=== PATIENT | female | born 1995 | race Caucasian/White ===

== ENCOUNTER 2024-12-02 | Inpatient (IN) | payer BC ==
[2024-12-02] MEDS ORDERED: Misoprostol 25 MCG (1/4 of 100 MCG) Tab VAG PRN (00:49)
[2024-12-02] MEDS ORDERED: Methylergonovine 0.2 MG/1 ML Amp IM PRN ×2 (00:49→21:27)
[2024-12-02] MEDS ORDERED: Lidocaine 1% 50 ML MDV INJECT PRN (00:49)
[2024-12-02] MEDS ORDERED: Water For Irrigation,Sterile 1,000 ML Container IRR PRN (00:49)
[2024-12-02] MEDS ORDERED: Sodium Chloride 0.9% 2.5 ML Syringe FLUSH PRN ×2 (00:49→21:27)
[2024-12-02] MEDS ORDERED: Terbutaline 1 MG/ML SDV SUBCUT PRN (00:49)
[2024-12-02] MEDS ORDERED: Butorphanol 2 MG/ML SDV IVPUSH PRN (00:49)
[2024-12-02] MEDS ORDERED: Misoprostol 200 MCG Tab PO PRN (00:49)
[2024-12-02] MEDS ORDERED: Sodium Chloride 0.9% 10 ML Syringe FLUSH PRN ×2 (00:49→21:27)
[2024-12-02] MEDS ORDERED: Carboprost Tromethamine 250 MCG/1 mL Vial IM PRN (00:49)
[2024-12-02] MEDS ORDERED: Ondansetron 4 MG/2 ML SDV IVPUSH PRN ×4 (00:49→22:53)
[2024-12-02] MEDS ORDERED: Sodium Chloride 0.9% 20 ML SDV IV PRN ×2 (00:49→21:27)
[2024-12-02] MEDS ORDERED: Tranexamic Acid in NACL,ISO-OS 1,000 MG in Premix Bag 1 BAG IV PRN (00:49)
[2024-12-02] MEDS ORDERED: Misoprostol 200 MCG Tab RECTAL PRN ×2 (00:49→21:27)
[2024-12-02] MEDS ORDERED: Oxytocin/0.9 % Sodium Chloride 30 UNIT/500 ML BAG IV SCH ×3 (01:00→21:30)
[2024-12-02 01:02] LABS: HEMATOCRIT 31.8 % (37.0-47.0); HEMOGLOBIN 10.9 g/dL (12.0-16.0); MEAN CORPUSCULAR HEMOGLOBIN 29.2 pg (28.0-32.0); MEAN CORPUSCULAR HGB CONC 34.3 g/dL (32.0-36.0); MEAN CORPUSCULAR VOLUME 85.3 fL (83.0-99.0); MEAN PLATELET VOLUME 11.8 fL (9.4-12.3); PLATELET COUNT,PLT 238 K/uL (150-400); RED BLOOD CELL COUNT 3.73 M/uL (4.10-5.30); WHITE BLOOD CELL COUNT,WBC 9.76 K/uL (3.9-11.3)
[2024-12-02] MEDS: Misoprostol 50 MCG (1/2 of 100 MCG) Tab PO ONE (01:21)
[2024-12-02] MEDS: Misoprostol 25 MCG (1/4 of 100 MCG) Tab VAG PRN (01:21)
[2024-12-02] MEDS: Lactated Ringers 1,000 ML IV SCH (08:32)
[2024-12-02] MEDS: Oxytocin/0.9 % Sodium Chloride 30 UNIT/500 ML BAG IV SCH (08:41)
[2024-12-02] MEDS ORDERED: ePHEDrine 50 MG/ML SDV IVPUSH PRN (09:21)
[2024-12-02] MEDS ORDERED: dexmedeTOMIDine HCl 200 MCG/2 ML SDV EPIDUR SCH (09:30)
[2024-12-02] MEDS: Ropivacaine HCl/PF 400 MG in Premix Bag 1 BAG EPIDUR SCH (13:34)
[2024-12-02] MEDS ORDERED: Bupivacaine 0.5% 30 ML SDV ONE (21:16)
[2024-12-02] MEDS ORDERED: fentaNYL 100 MCG/2 ML SDV ONE (21:16)
[2024-12-02] MEDS ORDERED: Ropivacaine 0.5% 5 MG/ML 30 ML SDV ONE (21:22)
[2024-12-02] MEDS ORDERED: Oxytocin 10 Units/1 ML SDV ONE ×2 (21:22→21:54)
[2024-12-02] MEDS ORDERED: ceFAZolin 2 GM Vial ONE (21:22)
[2024-12-02] MEDS ORDERED: Dexamethasone 4 MG/ML 5 ML MDV ONE (21:22)
[2024-12-02] MEDS ORDERED: Sodium Chloride 0.9% 20 ML ONE (21:23)
[2024-12-02] MEDS ORDERED: Naloxone 0.4 MG/ML SDV IVPUSH PRN ×2 (21:27→22:53)
[2024-12-02] MEDS ORDERED: Lanolin 100% Cream 7 GM Tube TOP PRN (21:27)
[2024-12-02] MEDS ORDERED: Bisacodyl 10 MG Supp RECTAL PRN (21:27)
[2024-12-02] MEDS ORDERED: Acetaminophen/oxyCODONE 325-5 MG Tab PO PRN ×3 (21:27→22:53)
[2024-12-02] MEDS ORDERED: diphenhydrAMINE 50 MG/ML SDV IVPUSH PRN ×2 (21:27→22:53)
[2024-12-02] MEDS ORDERED: ceFAZolin 2 GM in Sodium Chloride 0.9% 50 ML IV ONE (21:27)
[2024-12-02] MEDS ORDERED: Oxytocin 10 Units/1 ML SDV IM PRN (21:27)
[2024-12-02] MEDS ORDERED: Ketorolac 30 MG/ML SDV IVPUSH SCH (21:30)
[2024-12-02] MEDS ORDERED: Lactated Ringers 1,000 ML IV SCH ×2 (21:30)
[2024-12-02] MEDS ORDERED: Phenylephrine HCl In 0.9% NaCl 1 MG/10 ML Syringe ONE ×2 (21:44→22:01)
[2024-12-02] MEDS ORDERED: Glycopyrrolate 0.2 MG/ML SDV ONE (21:46)
[2024-12-02] MEDS ORDERED: Morphine PF 10 MG/10 ML SDV ONE (21:51)
[2024-12-02] MEDS ORDERED: Tranexamic Acid 1,000 MG/10 ML Vial ONE (21:56)
[2024-12-02] MEDS ORDERED: Phenylephrine 1% 10 MG/ML SDV ONE (22:09)
[2024-12-02] MEDS ORDERED: Morphine 2 MG/ML SYRINGE IVPUSH PRN (22:53)
[2024-12-02] MEDS ORDERED: fentaNYL 100 MCG/2 ML SDV IVPUSH PRN (22:53)
[2024-12-02] MEDS ORDERED: Albuterol 0.083% 2.5 MG/3 ML Neb Soln NEB PRN (22:53)
[2024-12-02] MEDS ORDERED: Metoclopramide 10 MG/2 ML SDV IVPUSH PRN (22:53)
[2024-12-02] MEDS ORDERED: Phenylephrine HCl In 0.9% NaCl 1 MG/10 ML Syringe IVPUSH PRN (22:53)
[2024-12-02] MEDS ORDERED: HYDROmorphone 1 MG/ML Syringe IVPUSH PRN (22:53)
[2024-12-02] MEDS ORDERED: fentaNYL 50 MCG/ML SDV IVPUSH PRN (22:53)
[2024-12-02] MEDS ORDERED: Nalbuphine 10 MG/1 ML Vial IVPUSH PRN (22:53)
[2024-12-02] MEDS: Phenylephrine HCl In 0.9% NaCl 1 MG/10 ML Syringe IVPUSH PRN (23:18)
[2024-12-02 23:36] LABS: PH,UMBILICAL VENOUS 7.17 (7.25-7.45)
[2024-12-03] MEDS: Acetaminophen 1,000 MG in Premix Bag 1 BAG IV SCH (01:04)
[2024-12-03] MEDS: Citric Acid/Sodium Citrate Solution 30 ML Cup PO ONE (01:18)
[2024-12-03] MEDS: Ketorolac 30 MG/ML SDV IVPUSH SCH (01:54)
[2024-12-03 06:22] LABS: HEMOGLOBIN 7.8 g/dL (12.0-16.0)
[2024-12-03] MEDS: Docusate Sodium 100 MG Cap PO SCH (09:02)
[2024-12-03] MEDS: Ferrous Sulfate 325 MG Tab PO SCH (13:07)
[2024-12-04 05:51] LABS: HEMATOCRIT 18.8 % (37.0-47.0); HEMOGLOBIN 6.4 g/dL (12.0-16.0); MEAN CORPUSCULAR HEMOGLOBIN 29.2 pg (28.0-32.0); MEAN CORPUSCULAR VOLUME 85.8 fL (83.0-99.0); PLATELET COUNT,PLT 256 K/uL (150-400); RED BLOOD CELL COUNT 2.19 M/uL (4.10-5.30); WHITE BLOOD CELL COUNT,WBC 13.73 K/uL (3.9-11.3)
[2024-12-04] MEDS: diphenhydrAMINE 25 MG Cap PO ONE (08:11)
[2024-12-04] MEDS: Acetaminophen 325 MG Tab PO ONE (08:11)
[2024-12-04] MEDS: Simethicone 80 MG Tab.Chew PO SCH (08:12)
[2024-12-04] MEDS: Sodium Chloride 0.9% 1,000 ML IV SCH (08:23)
[2024-12-04] MEDS: Ibuprofen 800 MG Tab PO PRN (12:21)
[2024-12-04] MEDS: Furosemide 20 MG/2 ML VIAL IVPUSH ONE ×2 (14:55→15:39)
[2024-12-04] MEDS: Furosemide 20 MG/2 ML VIAL ONE (15:39)
[2024-12-04 23:14] LABS: HEMATOCRIT 32.4 % (37.0-47.0); HEMOGLOBIN 10.9 g/dL (12.0-16.0)
[2024-12-05 06:04] LABS: HEMATOCRIT 29.2 % (37.0-47.0); HEMOGLOBIN 10.2 g/dL (12.0-16.0); MEAN CORPUSCULAR HEMOGLOBIN 30.2 pg (28.0-32.0); MEAN CORPUSCULAR HGB CONC 34.9 g/dL (32.0-36.0); MEAN CORPUSCULAR VOLUME 86.4 fL (83.0-99.0); MEAN PLATELET VOLUME 9.6 fL (9.4-12.3); PLATELET COUNT,PLT 251 K/uL (150-400); RED BLOOD CELL COUNT 3.38 M/uL (4.10-5.30); WHITE BLOOD CELL COUNT,WBC 11.63 K/uL (3.9-11.3)
== END 2024-12-05 12:15 | disposition home or self-care (01) | DRG 540 ==
LOC: MW.OB → OBSVTOIN 21:52 → MERGE 21:52 → MW.OB 21:52
PROVIDERS: ADMIT Obstetrics & Gynecology; ATTEND Obstetrics & Gynecology
PROC: 10907ZC Drainage of Amniotic Fluid, Therapeutic from Products of Conception, Via Natural or Artificial Opening (ICD-10-PCS; 2024-12-02)
PROC: 3E0R3BZ Introduction of Anesthetic Agent into Spinal Canal, Percutaneous Approach (ICD-10-PCS; 2024-12-02)
PROC: 10D00Z1 Extraction of Products of Conception, Low, Open Approach (ICD-10-PCS; 2024-12-02)
PROC: 30233N1 Transfusion of Nonautologous Red Blood Cells into Peripheral Vein, Percutaneous Approach (ICD-10-PCS; 2024-12-02)
PROC: 00HU33Z Insertion of Infusion Device into Spinal Canal, Percutaneous Approach (ICD-10-PCS; 2024-12-02)
PROC: 4A1HXCZ Monitoring of Products of Conception, Cardiac Rate, External Approach (ICD-10-PCS; 2024-12-02)
PROC: 10H07YZ Insertion of Other Device into Products of Conception, Via Natural or Artificial Opening (ICD-10-PCS; 2024-12-02)
PROC: 0U7C7ZZ Dilation of Cervix, Via Natural or Artificial Opening (ICD-10-PCS; 2024-12-02)
PROC: 3E0P7VZ Introduction of Hormone into Female Reproductive, Via Natural or Artificial Opening (ICD-10-PCS; 2024-12-02)
PROC: 3E033VJ Introduction of Other Hormone into Peripheral Vein, Percutaneous Approach (ICD-10-PCS; principal; 2024-12-02 21:40)
DX: O48.0 Post-term pregnancy (principal); D62 Acute posthemorrhagic anemia; O99.02 Anemia complicating childbirth; Z3A.40 40 weeks gestation of pregnancy; Z37.0 Single live birth; O34.211 Maternal care for low transverse scar from previous cesarean delivery; Z90.49 Acquired absence of other specified parts of digestive tract; R53.83 Other fatigue; O99.893 Other specified diseases and conditions complicating puerperium
CPT/HCPCS: 36415; 36430; 51702; 59025; 59514; 82803; 85014; 85018; 85027; 86592; 86850; 86900; 86901; 86920; A9270-GY; J0131; J0665; J0690; J1100; J1596; J1885; J1940; J2274; J2371; J2590; J2795; J3010; J3490; J7030; J7120; P9016

== ENCOUNTER 2024-12-17 11:17 | Emergency (ER) | payer BC | END 2024-12-17 12:04 | disposition home or self-care (01) | LOC: MW.ED 11:17 | DX: O90.0 Disruption of cesarean delivery wound (principal); Z90.49 Acquired absence of other specified parts of digestive tract; Z79.899 Other long term (current) drug therapy; Z75.8 Other problems related to medical facilities and other health care | CPT/HCPCS: 99283 ==

== ENCOUNTER 2025-01-06 10:34 | Emergency (ER) | payer BC | END 2025-01-06 11:38 | disposition home or self-care (01) | LOC: MW.ED 10:34 | DX: Z02.89 Encounter for other administrative examinations (principal); Z75.8 Other problems related to medical facilities and other health care; Z79.899 Other long term (current) drug therapy; Z90.49 Acquired absence of other specified parts of digestive tract | CPT/HCPCS: 99283 ==